=== PATIENT | male | born 1980 | race Caucasian/White ===

== ENCOUNTER 2020-03-15 03:38 | Emergency (ER) | payer MEDICAID ==
[~2020-03-15] VITALS: Ht 180.3 cm; Wt 95.5 kg
[2020-03-15 03:52] VITALS: BP 132/105
[2020-03-15] MEDS ORDERED: ibuprofen tablet 400 MG TABLET PO ONE (04:05)
[2020-03-15] MEDS ORDERED: AMOX-101 PO (04:07)
== END 2020-03-15 04:58 | disposition home or self-care (01) ==
LOC: ER 03:38
DX: S02.5XXA Fracture of tooth (traumatic), initial encounter for closed fracture (principal); S01.512A Laceration without foreign body of oral cavity, initial encounter; S93.402A Sprain of unspecified ligament of left ankle, initial encounter; S73.102A Unspecified sprain of left hip, initial encounter; F12.90 Cannabis use, unspecified, uncomplicated; W17.89XA Other fall from one level to another, initial encounter; Y93.89 Activity, other specified; Y92.89 Other specified places as the place of occurrence of the external cause; Y99.8 Other external cause status; F15.90 Other stimulant use, unspecified, uncomplicated; Z79.2 Long term (current) use of antibiotics
CPT/HCPCS: 73502; 73564; 99284

== ENCOUNTER 2025-05-18 17:25 | Emergency (ER) | payer MEDICAID ==
[~2025-05-18] VITALS: Ht 182.9 cm; Wt 75.0 kg
[~2025-05-18 17:25] MED LIST: NO HOME MEDS
--- NOTE | 2025-05-18 17:43 | Physician Documentation ---
History of Present Illness ~ Chief Complaint: Medical Clearance Stated Complaint: MEDICAL CLEARANCE Time Seen by MD: 17:28 Primary Medical Doctor: none HPI 45-year-old male presents to the ED via [employer] for medical clearance for fdc. According to [employer] patient was found behaving erratically in the general public and had a nice on him [employer] approached the patient and patient fled. Patient has scraped to his head 0 on the ground while being apprehended. RV are PB denies having to use any use of for some blows or Villanueva's drugs to apprehend patient Tetanus within 5 years?: No Medication Reconciliation Allergies: Uncoded Allergies: PORK (Allergy, Unknown, 05/27/24) Miscellaneous Medications Home Med List (No Home Medications), (Reported) Past Medical History Past Medical History: No Pertinent History Drug Use: marijuana, methamphetamine Lives In: Home Review of Systems All Other Systems at this time: Reviewed and Negative ROS As stated above in the HPI, otherwise all systems are reviewed and negative. Physical Exam Vital Signs: Temperature: 100.2, Source: Oral, Heart Rate: 95, Respiratory Rate: 22, BP: 136/87, Pulse Oximetry: 98, Weight: 75.000 Oxygen Flow Rate: 0 Physical Exam General: Alert, no apparent distress. HEENT: PERRL, EOMI, no injection, moist mucous membranes. abrasions right forehead and left side of head Neck: Full range of motion. Respiratory: Lungs clear, no respiratory distress. Cardiovascular: Regular rate and rhythm, no murmurs. Extremities: Normal range of motion, no deformity. Neurologic: Oriented x4. Psychiatric: Normal mood and affect. Progress Results/Orders Results/Orders Orders - JAGDEEP ALONZO NP General Nursing Order (05/18/25 ) Vital Signs 05/18/25 05/18/25 17:27 18:13 Temp 100.2 98.6 Pulse 95 99 Resp 22 20 B/P (MAP) 136/87 142/87 Pulse Ox 98 99 O2 Flow Rate 0 Medical Decision Making Findings Patient had only minor abrasions on his head secondary to his brisk apprehension. I do not see any reason to pursue further imaging as he is behaving appropriately and there is no signs of deformity or severe acute injuries. This patient is medically cleared for fdc Differential Dx:Considerations: Include: Intoxication-Alcohol, Intoxication- Other drug, Personality disorder, Substance abuse disorder, Acute delirium, C losed head injury, Cervical spine injury, Skull fracture, Fracture(s), Abrasion, Contusion, Foreign body, Hematoma, Laceration, Alcohol withdrawl syndrom, Encephalopathy, Hepatitis, Medically stable, Other Departure Disposition: 01 HOME / SELF CARE / HOMELESS Impression: Primary Impression: General medical exam Condition: Stable Discharge Instructions: Medical Screening Exam, Contusion, [id number] Additional Instructions: Stop using drugs. You are medically cleared for fdc Referrals: NO PRIMARY CARE PROVIDER (PCP) Signature Scribe Signature: g Attestation: Scribed for Jagdeep Alonzo Wine Bottle Inspector by Jagdeep Glaser NP . 05/18/25 21:44 JAGDEEP ALONZO NP May 18, 2025 17:43
[2025-05-18 18:13] VITALS: BP 142/87; PULSE 99; RESP 20; TEMP 98.6; O2SAT 99
== END 2025-05-18 18:15 ==
LOC: ER 17:26
DX: Z02.89 Encounter for other administrative examinations (principal); F12.90 Cannabis use, unspecified, uncomplicated; F15.90 Other stimulant use, unspecified, uncomplicated
CPT/HCPCS: 99283; J7030